=== PATIENT | female | born 1980 | race Caucasian/White ===

== ENCOUNTER 2018-03-30 11:26 | Emergency (ER) | payer OTHER ==
[~2018-03-30] VITALS: Ht 177.8 cm; Wt 95.3 kg
[2018-03-30] MEDS: IV NORMAL SALINE 1,000ML 1,000 ML IV ONE (12:07)
[2018-03-30] MEDS: ONDANSETRON PF 4 MG/2 ML VIAL. IV ONE (12:08)
--- NOTE | 2018-03-30 12:13 | PHYS DOC ---
Past History Past Medical History: GERD Past Surgical History: Other Alcohol Use: None Drug Use: None Adult General Chief Complaint Chief Complaint: ABDOMINAL PAIN HPI HPI 37-year-old female presents with right upper quadrant pain. The patient has had intermittent right upper quadrant pain for the last 1 year. She was previously worked up and found to have small gallstones. Surgery was not discussed at that time. Patient's pain began yesterday evening after she went to sleep. It did start about an hour after the last time she ate. She had some fried food at that time. The patient states that pain is a burning sensation in her right upper quadrant and epigastric area. She came in today because the pain has not subsided and she had one episode of vomiting. She has not had vomiting with this previously. She denies fever or chills. She has not had any blood in the vomit. No bloody or dark stools. She is currently on her menses. Her last episode of, pain was one month ago. She has some GERD at baseline for which she takes Prilosec daily. Review of Systems Review of Systems Constitutional: Denies fever or chills [] Eyes: Denies change in visual acuity, redness, or eye pain [] HENT: Denies nasal congestion or sore throat [] Respiratory: Denies cough or shortness of breath [] Cardiovascular: No additional information not addressed in HPI [] GI: Right upper quadrant and epigastric abdominal pain, vomiting[] : Denies dysuria or hematuria [] Musculoskeletal: Denies back pain or joint pain [] Integument: Denies rash or skin lesions [] Neurologic: Denies headache, focal weakness or sensory changes [] Endocrine: Denies polyuria or polydipsia [] All other systems were reviewed and found to be within normal limits, except as documented in this note. Current Medications Current Medications Current Medications Medications (Trade) Dose Ordered Sig/Tyron Start Time Stop Time Status Last Admin Dose Admin Ondansetron HCl (Zofran) 4 mg 1X ONCE 03/30/18 12:15 03/30/18 12:16 03/30/18 12:08 4 MG Sodium Chloride 1,000 ml @ 1,000 mls/hr 1X ONCE 03/30/18 12:00 03/30/18 12:59 03/30/18 12:07 1,000 MLS/HR Allergies Allergies Allergies Coded Allergies Type Severity Reaction Last Updated Verified No Known Drug Allergies 03/30/18 No Physical Exam Physical Exam Constitutional: Well developed, well nourished, no acute distress, non-toxic appearance. [] HENT: Normocephalic, atraumatic, bilateral external ears normal, oropharynx moist, no oral exudates, nose normal. [] Eyes: PERRLA, EOMI, conjunctiva normal, no discharge. [] Neck: Normal range of motion, no tenderness, supple, no stridor. [] Cardiovascular:Heart rate regular rhythm, no murmur [] Lungs & Thorax: Bilateral breath sounds clear to auscultation [] Abdomen: Mild epigastric and right upper quadrant pain, soft, no guarding, no palpable masses or organomegaly[] Skin: Warm, dry, no erythema, no rash. [] Back: No tenderness, no CVA tenderness. [] Extremities: No tenderness, no cyanosis, no clubbing, ROM intact, no edema. [] Neurologic: Alert and oriented X 3, normal motor function, normal sensory function, no focal deficits noted. [] Psychologic: Affect normal, judgement normal, mood normal. [] Current Patient Data Vital Signs Vital Signs Date Time Temp Pulse Resp B/P (MAP) Pulse Ox O2 Delivery O2 Flow Rate FiO2 03/30/18 11:41 97.8 80 18 94 Room Air EKG EKG [] Radiology/Procedures Radiology/Procedures [] Course & Med Decision Making Course & Med Decision Making Pertinent Labs and Imaging studies reviewed. (See chart for details) Patient's labs are unremarkable. She was given 30 mg of Toradol IV as well as a GI cocktail. She felt like the GI cocktail helped quite a bit. I'm not sure if this is some breakthrough reflux or her gallbladder. She is trying to reestablish with a primary care physician and will follow-up as needed. She is stable for discharge at this time. [] Dragon Disclaimer Dragon Disclaimer This electronic medical record was generated, in whole or in part, using a voice recognition dictation system. Departure Departure: Referrals: PCP,UNKNOWN (PCP) GIOVANNA OWEN DO Mar 30, 2018 12:12
[2018-03-30 12:18] LABS: BASO % 0 % (0-3); EOS # 0.1 x10^3/uL (0.0-0.7); EOS % 1 % (0-3); HEMATOCRIT 43.1 % (36.0-47.0); HEMOGLOBIN 14.8 g/dL (12.0-15.5); LYMPH # 2.1 x10^3/uL (1.0-4.8); LYMPH % 19 % (24-48); MEAN CORPUSCULAR HEMOGLOBIN 28 pg (25-35); MEAN CORPUSCULAR HGB CONC 34 g/dL (31-37); MEAN CORPUSCULAR VOLUME 83 fL (79-100); MONO # 0.7 x10^3/uL (0.0-1.1); MONO % 6 % (0-9); NEUT # 8.1 x10^3uL (1.8-7.7); NEUT % 74 % (31-73); PLATELET COUNT 387 x10^3/uL (140-400); RED CELL DISTRIBUTION WIDTH 12.4 % (11.5-14.5)
[2018-03-30 12:35] LABS: CALCIUM 9.1 mg/dL (8.5-10.1); CREATININE 0.8 mg/dL (0.6-1.0); GFR 80.3; POTASSIUM 3.7 mmol/L (3.5-5.1); TOTAL BILIRUBIN 0.6 mg/dL (0.2-1.0); TOTAL PROTEIN 8.2 g/dL (6.4-8.2)
[2018-03-30] MEDS: LIDO:MAALOX 1:1 20 ML SINGLE DOSE. PO ONE (13:05)
[2018-03-30] MEDS: KETOROLAC 30 MG/ML VIAL. IV ONE (13:06)
[2018-03-30 13:52] VITALS: BP 118/68
== END 2018-03-30 13:54 | disposition home or self-care (01) ==
LOC: ER 11:26
DX: R10.11 Right upper quadrant pain (principal); R10.13 Epigastric pain; R11.10 Vomiting, unspecified; K21.9 Gastro-esophageal reflux disease without esophagitis
CPT/HCPCS: 36415; 80053; 83690; 85025; 96361; 96374; 96375; 99284; J1885; J2405; J7030

== ENCOUNTER 2018-12-05 05:05 | Emergency (ER) | payer OTHER ==
[~2018-12-05] VITALS: Ht 172.7 cm; Wt 96.2 kg
--- NOTE | 2018-12-05 05:13 | ED.ADGEN ---
Past History Past Medical History: GERD (ALINA RUIZ MD) Past Medical History: GERD Additional Past Medical Histor: Ectopic (GEE MORAN DO) Past Surgical History: Other (ALINA RUIZ MD) Additional Past Surgical Histo: salpingectomy (ectopic ) (GEE MORAN DO) Alcohol Use: None Drug Use: None (ALINA RUIZ MD) Smoking: Non-smoker Alcohol Use: None Drug Use: None (GEE MORAN DO) Adult General Chief Complaint Chief Complaint ".. I ve had an upset stomach all day.. more here in upper and right.. but had some back pain with it... I did have an episodes of several vomits in a row.. it was just yellow like... " (ALINA RUIZ MD) HPI HPI Patient is a 38 year old female who presents with above hx and complaints of upper right and epigastric pain. Pt. currently rates her abdomen pain is 6 out of 10. Patient denies any intake of bad food. Last ate about 1800 hrs. consistent of chicken guero. Has been exposed to her brother who is sick with a diarrhea-viral like illness. 3 weeks ago. 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 She had a tubal excision.. Still has both ovaries. Patient's last period was 11/02/2018. Has not started spotting with oncoming period yet. No history of vaginal discharge or lower abdomen pain. No history of dark or tarry stools. Patient had a previous episode of similar type pain and 03/30/18 in which a GI cocktail relieved her symptoms. No recent travel or trauma. No history of kidney stones. Hx. of some GERD complaints. Pt. follows with Dr. Forte. (ALINA RUIZ MD) Review of Systems Review of Systems Constitutional: Denies fever or chills [] Eyes: Denies change in visual acuity, redness, or eye pain [] HENT: Denies nasal congestion or sore throat [] Respiratory: Denies cough or shortness of breath [] Cardiovascular: No additional information not addressed in HPI [] GI: Complaints of upper right and epigastric abdominal pain, nausea, vomiting,. Denies bloody stools or diarrhea [] : Denies dysuria or hematuria [] Musculoskeletal: Complaints of back pain . Integument: Denies rash or skin lesions [] Neurologic: Denies headache, focal weakness or sensory changes [] Endocrine: Denies polyuria or polydipsia [] All other systems were reviewed and found to be within normal limits, except as documented in this note. (ALINA RUIZ MD) Family History Family History Noncontributory (ALINA RUIZ MD) Current Medications Current Medications Current Medications Medications (Trade) Dose Ordered Sig/Tyron Start Time Stop Time Status Last Admin Dose Admin Ceftriaxone Sodium 1 gm/ Sodium Chloride 50 ml @ 100 mls/hr 1X ONCE 12/05/18 06:30 12/05/18 06:59 DC 12/05/18 06:30 100 MLS/HR Ceftriaxone Sodium (Rocephin) 1 gm STK-MED ONCE 12/05/18 06:38 12/05/18 06:39 DC Famotidine (Pepcid Vial) 20 mg 1X ONCE 12/05/18 05:30 12/05/18 05:31 DC 12/05/18 05:39 20 MG Info (Do NOT chart on this entry -- for MONITORING) 1 each PRN DAILY PRN 12/05/18 06:30 12/07/18 06:29 Iohexol (Omnipaque 240 Mg/ml) 50 ml 1X ONCE 12/05/18 07:00 12/05/18 07:01 DC Iohexol (Omnipaque 300 Mg/ml) 75 ml 1X ONCE 12/05/18 07:00 12/05/18 07:01 DC 12/05/18 06:45 75 ML Ketorolac Tromethamine (Toradol 15mg Vial) 15 mg 1X ONCE 12/05/18 07:15 12/05/18 07:16 DC 12/05/18 07:10 15 MG Lactated Ringer's 1,000 ml @ 1,000 mls/hr Q1H 12/05/18 05:30 12/05/18 06:29 DC 12/05/18 05:39 1,000 MLS/HR Magnesium Hydroxide (Milk Of Magnesia) 2,400 mg 1X ONCE 12/05/18 05:30 12/05/18 05:31 DC 12/05/18 05:40 2,400 MG Ondansetron HCl (Zofran) 8 mg 1X ONCE 12/05/18 05:30 12/05/18 05:31 DC 12/05/18 05:40 8 MG Piperacillin Sod/ Tazobactam Sod 3.375 gm/Sodium Chloride 50 ml @ 100 mls/hr 1X ONCE 12/05/18 07:30 12/05/18 07:59 UNV Sodium Chloride 50 ml @ As Directed STK-MED ONCE 12/05/18 06:38 12/05/18 06:39 DC (GEE MORAN DO) Allergies Allergies Allergies Coded Allergies Type Severity Reaction Last Updated Verified No Known Drug Allergies 03/30/18 No (GEE MORAN DO) Physical Exam Physical Exam Constitutional: Moderate acute distress, non-toxic appearance. [] HENT: Normocephalic, atraumatic, bilateral external ears normal, oropharynx dry, no oral exudates, nose normal. [] Eyes: PERRLA, EOMI, conjunctiva normal, no discharge. [] Neck: Normal range of motion, no tenderness, supple, no stridor. [] Cardiovascular:Heart rate regular rhythm, no murmur [] Lungs & Thorax: Bilateral breath sounds equal apex on auscultation [] Abdomen: Bowel sounds normal, soft, right upper and epigastric tenderness, no masses, no pulsatile masses. [] Old surgery scars Skin: Warm, dry, no erythema, no rash. [] Back: No tenderness, mild CVA tenderness on percussion. Extremities: No tenderness, no cyanosis, no clubbing, ROM intact, no edema. [] No psoas sign. Neurologic: Alert and oriented X 3, normal motor function, normal sensory function, no focal deficits noted. [] Psychologic: Affect anxious, judgement normal, mood normal. [] (ALINA RUIZ MD) Physical Exam Constitutional: Well developed, well nourished, no acute distress, non-toxic appearance HENT: Normocephalic, atraumatic, oropharynx moist Eyes: Conjunctiva normal, no discharge Neck: Normal range of motion, no tenderness, supple Cardiovascular: Heart rate normal, regular rhythm Lungs & Thorax: No respiratory distress Abdomen: Soft, RUQ tenderness Skin: Warm, dry, no erythema, no rash Back: No tenderness, no CVA tenderness Extremities: No tenderness, ROM intact, no edema Neurologic: Alert and oriented X 3, no focal deficits noted Psychologic: Affect normal, judgement normal, (GEE MORAN R DO) Current Patient Data Vital Signs Vital Signs Date Time Temp Pulse Resp B/P (MAP) Pulse Ox O2 Delivery O2 Flow Rate FiO2 12/05/18 06:23 69 20 148/87 (107) 99 Room Air 12/05/18 05:18 97.9 (LUISAGEE Tarun DO) Lab Results Laboratory Tests Test 12/05/18 05:18 12/05/18 05:25 Urine Collection Type Unknown Urine Color Yellow Urine Clarity Hazy Urine pH 5.5 Urine Specific [place] 1.025 Urine Protein 30 mg/dl (NEG-TRACE) Urine Glucose (UA) Neg mg/dL (NEG) Urine Ketones (Stick) 15 mg/dL (NEG) Urine Blood Neg (NEG) Urine Nitrite Pos (NEG) Urine Bilirubin Neg (NEG) Urine Urobilinogen Dipstick 1 mg/dL (0.2 mg/dL) Urine Leukocyte Esterase Small (NEG) Urine RBC 0 /HPF (0-2) Urine WBC 5-10 /HPF (0-4) Urine Squamous Epithelial Cells Many /LPF Urine Bacteria Few /HPF (0-FEW) Urine Test Negative (NEG) Urine Opiates Screen Neg (NEG) Urine Methadone Screen Neg (NEG) Urine Barbiturates Neg (NEG) Urine Phencyclidine Screen Neg (NEG) Urine Amphetamine/Methamphetamine Neg (NEG) Urine Benzodiazepines Screen Neg (NEG) Urine Cocaine Screen Neg (NEG) Urine Cannabinoids Screen Neg (NEG) Urine Ethyl Alcohol Neg (NEG) White Blood Count 12.7 x10^3/uL (4.0-11.0) H Red Blood Count 5.32 x10^6/uL (3.50-5.40) Hemoglobin 15.0 g/dL (12.0-15.5) Hematocrit 44.6 % (36.0-47.0) Mean Corpuscular Volume 84 fL (79-100) Mean Corpuscular Hemoglobin 28 pg (25-35) Mean Corpuscular Hemoglobin Concent 34 g/dL (31-37) Red Cell Distribution Width 12.5 % (11.5-14.5) Platelet Count 393 x10^3/uL (140-400) Neutrophils (%) (Auto) 80 % (31-73) H Lymphocytes (%) (Auto) 12 % (24-48) L Monocytes (%) (Auto) 8 % (0-9) Eosinophils (%) (Auto) 1 % (0-3) Basophils (%) (Auto) 0 % (0-3) Neutrophils # (Auto) 10.1 x10^3uL (1.8-7.7) H Lymphocytes # (Auto) 1.5 x10^3/uL (1.0-4.8) Monocytes # (Auto) 1.0 x10^3/uL (0.0-1.1) Eosinophils # (Auto) 0.1 x10^3/uL (0.0-0.7) Basophils # (Auto) 0.0 x10^3/uL (0.0-0.2) Prothrombin Time 9.7 SEC (9.4-11.4) Prothrombin Time INR 0.9 (0.9-1.1) PTT 24 SEC (23-33) Sodium Level 138 mmol/L (136-145) Potassium Level 4.1 mmol/L (3.5-5.1) Chloride Level 100 mmol/L (98-107) Carbon Dioxide Level 25 mmol/L (21-32) Anion Gap 13 (6-14) Blood Urea Nitrogen 8 mg/dL (7-20) Creatinine 0.9 mg/dL (0.6-1.0) Estimated GFR (Cockcroft-Gault) 69.7 Glucose Level 129 mg/dL (70-99) H Calcium Level 9.9 mg/dL (8.5-10.1) Total Bilirubin 2.6 mg/dL (0.2-1.0) H Direct Bilirubin 1.5 mg/dL (0.0-0.2) H Aspartate Amino Transferase (AST) 329 U/L (15-37) H Alanine Aminotransferase (ALT) 158 U/L (14-59) H Alkaline Phosphatase 118 U/L (46-116) H Troponin I Quantitative < 0.017 ng/mL (0-0.055) Total Protein 8.1 g/dL (6.4-8.2) Albumin 4.4 g/dL (3.4-5.0) Lipase 129 U/L (73-393) (GEE MORAN DO) Lab Results Laboratory Tests Test 12/05/18 05:18 12/05/18 05:25 Urine Collection Type Unknown Urine Color Yellow Urine Clarity Hazy Urine pH 5.5 Urine Specific [place] 1.025 Urine Protein 30 mg/dl (NEG-TRACE) Urine Glucose (UA) Neg mg/dL (NEG) Urine Ketones (Stick) 15 mg/dL (NEG) Urine Blood Neg (NEG) Urine Nitrite Pos (NEG) Urine Bilirubin Neg (NEG) Urine Urobilinogen Dipstick 1 mg/dL (0.2 mg/dL) Urine Leukocyte Esterase Small (NEG) Urine RBC 0 /HPF (0-2) Urine WBC 5-10 /HPF (0-4) Urine Squamous Epithelial Cells Many /LPF Urine Bacteria Few /HPF (0-FEW) Urine Test Negative (NEG) Urine Opiates Screen Neg (NEG) Urine Methadone Screen Neg (NEG) Urine Barbiturates Neg (NEG) Urine Phencyclidine Screen Neg (NEG) Urine Amphetamine/Methamphetamine Neg (NEG) Urine Benzodiazepines Screen Neg (NEG) Urine Cocaine Screen Neg (NEG) Urine Cannabinoids Screen Neg (NEG) Urine Ethyl Alcohol Neg (NEG) White Blood Count 12.7 x10^3/uL (4.0-11.0) H Red Blood Count 5.32 x10^6/uL (3.50-5.40) Hemoglobin 15.0 g/dL (12.0-15.5) Hematocrit 44.6 % (36.0-47.0) Mean Corpuscular Volume 84 fL (79-100) Mean Corpuscular Hemoglobin 28 pg (25-35) Mean Corpuscular Hemoglobin Concent 34 g/dL (31-37) Red Cell Distribution Width 12.5 % (11.5-14.5) Platelet Count 393 x10^3/uL (140-400) Neutrophils (%) (Auto) 80 % (31-73) H Lymphocytes (%) (Auto) 12 % (24-48) L Monocytes (%) (Auto) 8 % (0-9) Eosinophils (%) (Auto) 1 % (0-3) Basophils (%) (Auto) 0 % (0-3) Neutrophils # (Auto) 10.1 x10^3uL (1.8-7.7) H Lymphocytes # (Auto) 1.5 x10^3/uL (1.0-4.8) Monocytes # (Auto) 1.0 x10^3/uL (0.0-1.1) Eosinophils # (Auto) 0.1 x10^3/uL (0.0-0.7) Basophils # (Auto) 0.0 x10^3/uL (0.0-0.2) Prothrombin Time 9.7 SEC (9.4-11.4) Prothrombin Time INR 0.9 (0.9-1.1) PTT 24 SEC (23-33) Sodium Level 138 mmol/L (136-145) Potassium Level 4.1 mmol/L (3.5-5.1) Chloride Level 100 mmol/L (98-107) Carbon Dioxide Level 25 mmol/L (21-32) Anion Gap 13 (6-14) Blood Urea Nitrogen 8 mg/dL (7-20) Creatinine 0.9 mg/dL (0.6-1.0) Estimated GFR (Cockcroft-Gault) 69.7 Glucose Level 129 mg/dL (70-99) H Calcium Level 9.9 mg/dL (8.5-10.1) Total Bilirubin 2.6 mg/dL (0.2-1.0) H Direct Bilirubin 1.5 mg/dL (0.0-0.2) H Aspartate Amino Transferase (AST) 329 U/L (15-37) H Alanine Aminotransferase (ALT) 158 U/L (14-59) H Alkaline Phosphatase 118 U/L (46-116) H Troponin I Quantitative < 0.017 ng/mL (0-0.055) Total Protein 8.1 g/dL (6.4-8.2) Albumin 4.4 g/dL (3.4-5.0) Lipase 129 U/L (73-393) (ALINA RUIZ MD) EKG EKG My interpretation EKG shows a sinus rhythm at 73 bpm incomplete right bundle branch block. No findings acute STEMI of contralateral changes.[] (ALINA RUIZ MD) Radiology/Procedures Radiology/Procedures [] (ALINA RUIZ MD) Radiology/Procedures PROCEDURE: ACUTE ABDOMEN SERIES Acute abdominal series to include a PA chest radiograph 12/05/2018 Clinical History: Epigastric and umbilical pain with nausea and vomiting A PA digital radiograph of the chest was obtained. Supine and erect AP digital radiographs of the abdomen/pelvis were obtained. No previous studies are available for comparison. The cardiac and mediastinal silhouettes are within normal limits in size and configuration. No pulmonary infiltrate is seen. No pleural effusion or pneumothorax is noted. The abdominal bowel gas pattern is nonobstructive. There is no evidence of free air. No radiopaque calculus is seen. Calcifications are seen within the pelvis consistent with phleboliths. The osseous structures are grossly intact. Impression: Negative study. Electronically signed by: Alek Garsia MD (12/05/2018 6:29 AM) [facility] PROCEDURE: CT ABD PELV W/ IV CONTRST ONLY CT ABD PELV W/ IV CONTRST ONLY INDICATION: Epigastric pain, nausea and vomiting EXAM: CT of the abdomen and pelvis was obtained after administration of 75 cc Omnipaque 350. Coronal and sagittal reformatted images were performed. COMPARISON: Acute abdomen series 12/05/2018 FINDINGS: No free air. Trace pelvic free fluid, likely physiologic. Lower chest: The visualized lower lungs are aerated. No pleural or pericardial effusion. ABDOMEN: Liver: The liver is mildly enlarged, measuring 19.8 cm craniocaudad. Gallbladder and biliary: Cholelithiasis. Mild gallbladder wall thickening, measuring up to 5 mm. Mild inflammatory stranding around the gallbladder. Dilated common bile duct measures up to 13 mm in diameter. Dilated intrahepatic bile ducts. Spleen: Spleen is normal in size. Calcified splenic granulomas. Pancreas: The noncontrast pancreas is homogeneous in attenuation without peripancreatic inflammatory changes. Adrenal glands: Normal adrenal glands. Kidneys and ureters: No opaque urinary calculi. Normal kidneys and ureters. GI tract: The stomach is decompressed and poorly evaluated. Normal caliber small bowel and colon. Normal appendix. Vascular structures: Normal caliber abdominal aorta. Lymph nodes: No lymphadenopathy in the abdomen or pelvis. PELVIS: Genitourinary system: Bladder is decompressed and poorly evaluated. Normal uterus and ovaries. SKELETAL STRUCTURES AND SOFT TISSUES: No fracture or destructive lesion in the visualized skeleton. IMPRESSION: 1. Cholelithiasis with gallbladder wall thickening and mild surrounding inflammation, which may indicate acute cholecystitis. 2. Dilated intrahepatic and extrahepatic bile ducts. Common bile duct is visualized to the level of the ampulla and no radiopaque stone is seen, however the gallbladder appears to contain both radiopaque and nonradiopaque stones and it is possible that choledocholithiasis is present with a nonradiopaque stone at the ampulla, versus a recently passed stone. Findings were discussed with Dr. Moran at 7:20 AM on 12/05/2018 FOR INTERNAL CODING PURPOSES Critical result: RESULT CODE: (C) Electronically signed by: Hakeem Otero MD (12/05/2018 7:24 AM) [facility] (GEE MORAN DO) Course & Med Decision Making Course & Med Decision Making Pertinent Labs and Imaging studies reviewed. (See chart for details) Pt. endorsed to Dr. Mroan at shift change. [] (ALINA RUIZ MD) Course & Med Decision Making 0600- Sign out received from Dr. Szymanski for patient with upper abdominal pain which started last night. Patient reports last PO at dinnertime last night except for GI cocktail received in ED. Patient pending CT imaging at time of sign out. Labs reviewed and noted to have elevated LFTs. Patient also noted to have slightly elevated WBC and UA which was Nitrite positive with some WBC and bacteria on microscopy. Patient previously given Rocephin. Patient seen and evaluated by myself. CT results called by radiology. CT noted to have signs of cholecystitis and likely choledocholithiasis. 0730- Called and discussed case with Dr. Fong (General Surgery at [facility]). Requests transfer to [place] with admission under [facility]. Requests starting Zosyn. Discussed with Dr. Elaine (hospitalist) who is in agreement with transfer for admission at [facility]. Discussed findings and plan with patient and family, who acknowledge understanding and agreement. (GEE MORAN DO) Final Impression Final Impression 1. Abdomen pain[]-suspect biliary colic 2. UTI 3. Mild Leukocytosis 12.7 4. Nausea and Vomiting (ALINA RUIZ MD) Final Impression 1) Choledocholithiasis 2) UTI Problems: (1) Choledocholithiasis with acute cholecystitis with obstruction (2) Urinary tract infection Qualifiers: Qualified Codes: N30.00 - Acute cystitis without hematuria (GEE MORAN DO) Dragon Disclaimer Dragon Disclaimer This electronic medical record was generated, in whole or in part, using a voice recognition dictation system. (ALINA RUIZ MD) ALINA RUIZ MD Dec 05, 2018 05:13 GEE MORAN DO Dec 05, 2018 07:52
[2018-12-05] MEDS ORDERED: FAMOTIDINE 20 MG/2 ML VIAL IVP ONE (05:30)
[2018-12-05] MEDS ORDERED: IV RINGERS SOLUTION,LACTATED 1,000 ML IV SCH (05:30)
[2018-12-05] MEDS ORDERED: MAGNESIUM HYDROXIDE 2,400 MG/30 ML ORAL.SUSP. PO ONE (05:30)
[2018-12-05] MEDS ORDERED: ONDANSETRON PF 4 MG/2 ML VIAL. IV ONE (05:30)
[2018-12-05 05:46] LABS: BASO % 0 % (0-3); EOS # 0.1 x10^3/uL (0.0-0.7); EOS % 1 % (0-3); HEMATOCRIT 44.6 % (36.0-47.0); LYMPH # 1.5 x10^3/uL (1.0-4.8); LYMPH % 12 % (24-48); MEAN CORPUSCULAR HEMOGLOBIN 28 pg (25-35); MEAN CORPUSCULAR HGB CONC 34 g/dL (31-37); MEAN CORPUSCULAR VOLUME 84 fL (79-100); MONO % 8 % (0-9); NEUT # 10.1 x10^3uL (1.8-7.7); NEUT % 80 % (31-73); PLATELET COUNT 393 x10^3/uL (140-400); RED BLOOD COUNT 5.32 x10^6/uL (3.50-5.40); RED CELL DISTRIBUTION WIDTH 12.5 % (11.5-14.5); WHITE BLOOD COUNT 12.7 x10^3/uL (4.0-11.0)
[2018-12-05 05:52] LABS: U PREG PATIENT NEGATIVE (NEG)
[2018-12-05 05:59] LABS: BACTERIA,URINE FEW /HPF (0-FEW); BILIRUBIN,URINE NEG (NEG); CLARITY,URINE HAZY; COLOR,URINE YELLOW; GLUCOSE,URINE NEG (NEG); NITRITE,URINE POS (NEG); RBC,URINE 0 /HPF (0-2); SQUAMOUS EPITHELIAL CELL,UR MANY /LPF; UROBILINOGEN,URINE 1 mg/dL (0.2 mg/dL)
[2018-12-05 06:08] LABS: ALBUMIN 4.4 g/dL (3.4-5.0); CALCIUM 9.9 mg/dL (8.5-10.1); TOTAL PROTEIN 8.1 g/dL (6.4-8.2)
[2018-12-05 06:09] LABS: CREATININE 0.9 mg/dL (0.6-1.0); GFR 69.7
[2018-12-05 06:10] LABS: POTASSIUM 4.1 mmol/L (3.5-5.1); TOTAL BILIRUBIN 2.6 mg/dL (0.2-1.0)
[2018-12-05 06:11] LABS: DIRECT BILIRUBIN 1.5 mg/dL (0.0-0.2)
[2018-12-05 06:12] LABS: AMPHETAMINE/METHAMPHETAMINE NEG (NEG); BARBITURATES NEG (NEG); BENZODIAZEPINES NEG (NEG)
[2018-12-05 06:13] LABS: CANNABINOIDS NEG (NEG); COCAINE NEG (NEG); METHADONE NEG (NEG); OPIATES NEG (NEG); PHENCYCLIDINE NEG (NEG)
[2018-12-05] MEDS ORDERED: CONTRAST GIVEN MC PRN (06:30)
--- NOTE | 2018-12-05 06:32 | RAD ---
Acute abdominal series to include a PA chest radiograph 12/05/2018 Clinical History: Epigastric and umbilical pain with nausea and vomiting A PA digital radiograph of the chest was obtained. Supine and erect AP digital radiographs of the abdomen/pelvis were obtained. No previous studies are available for comparison. The cardiac and mediastinal silhouettes are within normal limits in size and configuration. No pulmonary infiltrate is seen. No pleural effusion or pneumothorax is noted. The abdominal bowel gas pattern is nonobstructive. There is no evidence of free air. No radiopaque calculus is seen. Calcifications are seen within the pelvis consistent with phleboliths. The osseous structures are grossly intact. Impression: Negative study. Electronically signed by: Alek Garsia MD (12/05/2018 6:29 AM) [facility]
[2018-12-05] MEDS ORDERED: IV NORMAL SALINE 50ML 50 ML ONE (06:38)
[2018-12-05] MEDS ORDERED: cefTRIAXone SODIUM 1 GM VIAL ONE (06:38)
[2018-12-05] MEDS ORDERED: IOHEXOL 240 MG/ML 50ML VIAL. PO ONE (07:00)
[2018-12-05] MEDS ORDERED: IOHEXOL 300 MG/ML 75 ML VIAL. IV ONE (07:00)
[2018-12-05] MEDS ORDERED: KETOROLAC 15 MG/ML VIAL. IM ONE (07:15)
--- NOTE | 2018-12-05 07:26 | RAD ---
CT ABD PELV W/ IV CONTRST ONLY INDICATION: Epigastric pain, nausea and vomiting EXAM: CT of the abdomen and pelvis was obtained after administration of 75 cc Omnipaque 350. Coronal and sagittal reformatted images were performed. COMPARISON: Acute abdomen series 12/05/2018 FINDINGS: No free air. Trace pelvic free fluid, likely physiologic. Lower chest: The visualized lower lungs are aerated. No pleural or pericardial effusion. ABDOMEN: Liver: The liver is mildly enlarged, measuring 19.8 cm craniocaudad. Gallbladder and biliary: Cholelithiasis. Mild gallbladder wall thickening, measuring up to 5 mm. Mild inflammatory stranding around the gallbladder. Dilated common bile duct measures up to 13 mm in diameter. Dilated intrahepatic bile ducts. Spleen: Spleen is normal in size. Calcified splenic granulomas. Pancreas: The noncontrast pancreas is homogeneous in attenuation without peripancreatic inflammatory changes. Adrenal glands: Normal adrenal glands. Kidneys and ureters: No opaque urinary calculi. Normal kidneys and ureters. GI tract: The stomach is decompressed and poorly evaluated. Normal caliber small bowel and colon. Normal appendix. Vascular structures: Normal caliber abdominal aorta. Lymph nodes: No lymphadenopathy in the abdomen or pelvis. PELVIS: Genitourinary system: Bladder is decompressed and poorly evaluated. Normal uterus and ovaries. SKELETAL STRUCTURES AND SOFT TISSUES: No fracture or destructive lesion in the visualized skeleton. IMPRESSION: 1. Cholelithiasis with gallbladder wall thickening and mild surrounding inflammation, which may indicate acute cholecystitis. 2. Dilated intrahepatic and extrahepatic bile ducts. Common bile duct is visualized to the level of the ampulla and no radiopaque stone is seen, however the gallbladder appears to contain both radiopaque and nonradiopaque stones and it is possible that choledocholithiasis is present with a nonradiopaque stone at the ampulla, versus a recently passed stone. Findings were discussed with Dr. Sharp at 7:20 AM on 12/05/2018 FOR INTERNAL CODING PURPOSES Critical result: RESULT CODE: (C) Electronically signed by: Hakeem Otero MD (12/05/2018 7:24 AM) [facility]
[2018-12-05] MEDS ORDERED: PIPERACILLIN/TAZOBACTAM 3.375 GM in IV NORMAL SALINE 50ML 50 ML IV ONE (07:30)
[2018-12-05 08:00] VITALS: BP 140/83
--- NOTE | 2018-12-06 06:49 | EKG ---
[address] [address] Test Date: 2018-12-05 Test Time: 05:38:54 Pat Name: GAYATRI HERBERT Department: Room: Gender: F [employer] Consultant: MEHRDAD : 1980 Requested By: ALINA RUIZ Order Number: [id number] Reading MD: Measurements Intervals [place] Rate: 73 P: 30 IN: 152 QRS: 3 QRSD: 78 T: 17 QT: 392 QTc: 436 Interpretive Statements SINUS RHYTHM INCOMPLETE RIGHT BUNDLE BRANCH BLOCK QRS(T) CONTOUR ABNORMALITY CONSIDER ANTEROLATERAL MYOCARDIAL DAMAGE POSSIBLY ABNORMAL ECG RI6.01 No previous ECG available for comparison
== END 2018-12-05 08:19 | disposition short-term general hospital (02) ==
LOC: ER 05:05
DX: K80.01 Calculus of gallbladder with acute cholecystitis with obstruction (principal); N30.00 Acute cystitis without hematuria; D72.829 Elevated white blood cell count, unspecified; R11.2 Nausea with vomiting, unspecified; K21.9 Gastro-esophageal reflux disease without esophagitis
CPT/HCPCS: 36415; 74022; 74177; 80048; 80076; 80307; 81001; 81025; 83690; 84484; 85025; 85610; 85730; 87086; 93005; 96361; 96365; 96372; 96375; 99285; J0696; J1885; J2405; J3490; J7120; Q9967